=== PATIENT | female | born 1970 | race Two or more races ===

== ENCOUNTER 2021-05-14 11:11 | Outpatient (REF) | payer OTHER, SELFPAY ==
--- NOTE | ~2021-05-14 | XR_ITS ---
EXAMINATION: CERVICAL AND LUMBAR SPINE. CLINICAL INFORMATION: Low back pain. COMPARISON: None TECHNIQUE: 3 views lumbar spine and 3 views cervical spine. FINDINGS: LUMBAR SPINE: There is normal lumbar lordosis. The vertebral heights, alignment and disc heights are normal. There is no visible acute fracture, dislocation or lytic process seen. The paravertebral soft tissues are normal. CERVICAL SPINE: There is maintained cervical lordosis. The vertebral heights, alignment and disc heights are normal. No visible acute fracture, dislocation or lytic process seen. The prevertebral soft tissues are normal. XR/XR cervical spine 3V IMPRESSION: Unremarkable lumbar spine exam. Unremarkable cervical spine exam.
--- NOTE | ~2021-05-14 | XR_ITS ---
EXAMINATION: CERVICAL AND LUMBAR SPINE. CLINICAL INFORMATION: Low back pain. COMPARISON: None TECHNIQUE: 3 views lumbar spine and 3 views cervical spine. FINDINGS: LUMBAR SPINE: There is normal lumbar lordosis. The vertebral heights, alignment and disc heights are normal. There is no visible acute fracture, dislocation or lytic process seen. The paravertebral soft tissues are normal. CERVICAL SPINE: There is maintained cervical lordosis. The vertebral heights, alignment and disc heights are normal. No visible acute fracture, dislocation or lytic process seen. The prevertebral soft tissues are normal. XR/XR lumbar spine 2-3V IMPRESSION: Unremarkable lumbar spine exam. Unremarkable cervical spine exam.
== END 2021-05-14 11:12 | disposition home or self-care (01) ==
LOC: HO.XRAY 11:11
PROVIDERS: PCP Internal Medicine; Visit Provider Psychiatry & Neurology Neurology
DX: M47.812 Spondylosis without myelopathy or radiculopathy, cervical region (principal); M54.5 Low back pain
CPT/HCPCS: 72040; 72100

== ENCOUNTER 2021-07-01 09:48 | Outpatient (REF) | payer OTHER, SELFPAY ==
[2021-07-01 10:06] LABS: MANUAL DIFF FLAG NO
[2021-07-01 10:44] LABS: Basophils Percent Auto 0.4 % (0-2); Eosinophils Absolute Auto 0.1 X10*3/uL (0.0-0.4); Hematocrit 38.3 % (37-47); Hemoglobin 13.1 g/dl (12.0-16.0); Imm Gran Abs Auto 0.01 X10*3/uL (0.00-0.03); Imm Gran Pct Auto 0.2 % (0.0-0.4); Lymphocytes Absolute Auto 1.7 X10*3/uL (1.2-4.9); Lymphocytes Percent Auto 31.7 % (20-40); Mean Corpuscular HGB Conc 34.2 g/dl (31.0-35.0); Mean Corpuscular Hemoglobin 29.3 pg (27.0-33.0); Mean Corpuscular Volume 85.7 fL (80-98); Mean Platelet Volume 9.6 fL (9.4-12.3); Monocytes Absolute Auto 0.4 X10*3/uL (0.1-1.2); Monocytes Percent Auto 7.2 % (2-11); Neutrophils Absolute Auto 3.2 X10*3/uL (2.0-8.3); Neutrophils Percent Auto 58.5 % (45-73); Platelet Count 305 X10*3/uL (160-400); Red Blood Count 4.47 X10*6/uL (4.20-5.50); Red Cell Distribution Width 12.7 % (11.0-16.0); White Blood Count 5.4 X10*3/uL (4.8-10.8)
[2021-07-01 11:27] LABS: Thyroid Stimulating Hormone 1.02 uIU/mL (0.32-4.0)
[2021-07-01 11:58] LABS: Erythrocyte Sedimentation Rate 26 MM/HR (0-20)
[2021-07-02 09:11] LABS: Lyme Abs Screen <0.90 index
[2021-07-02 14:26] LABS: Anti Nuclear Antibody Screen NEGATIVE (NEGATIVE)
== END 2021-07-01 09:49 | disposition home or self-care (01) ==
LOC: HO.LAB 09:48
PROVIDERS: PCP Internal Medicine; Visit Provider Psychiatry & Neurology Neurology
DX: M25.50 Pain in unspecified joint (principal)
CPT/HCPCS: 36415; 84443; 85025; 85652; 86038; 86039; 86617; 86618

== ENCOUNTER 2022-04-28 10:30 | Outpatient (REF) | payer OTHER, SELFPAY ==
--- NOTE | ~2022-04-28 | MR_ITS ---
EXAMINATION: MR BRAIN WITHOUT AND WITH CONTRAST CLINICAL INFORMATION: Multiple sclerosis. COMPARISON: There are no prior studies available for comparison at time of dictation. TECHNIQUE: Multiplanar, multisequence MRI of the brain was obtained before and after the intravenous administration of 7.5 mL Gadavist. FINDINGS: No diffusion abnormalities are identified to suggest an acute or subacute infarct. No mass effect or midline shift is seen. The ventricles and sulci are normal in size. There are a few scattered foci of hyperintense T2 and FLAIR signal in the periventricular and subcortical white matter which are in a nonspecific distribution. A small focus of increased signal is seen in the mid left cerebellar hemisphere. The visualized upper cervical spinal cord has normal signal. No extra-axial fluid collections are seen. The brainstem appears normal. On postcontrast imaging, there is no abnormal parenchymal or leptomeningeal enhancement. No pathologic magnetic susceptibility artifact is identified on the gradient refocused acquisition. The cerebellar tonsils have normal contour and position, and the craniocervical junction appears normal. Marrow signal and midline structures are normal. The major intracranial flow-voids at the level of the [place] of [place] are preserved. The dural venous sinus flow-voids are maintained. The mastoid air cells are well-aerated. There is mild mucoperiosteal thickening of the bilateral maxillary and ethmoid sinuses. MR/MR head/brain wo/w con IMPRESSION: 1. There are no acute bleeds or infarcts. There are no masses or areas of abnormal enhancement. There are a few scattered nonspecific foci of hyperintense T2 and FLAIR signal. If prior studies become available, interval changes can be assessed.
== END 2022-04-28 10:31 | disposition home or self-care (01) ==
LOC: HO.MRI 10:30
PROVIDERS: Visit Provider Psychiatry & Neurology Neurology
DX: G35 Multiple sclerosis (principal)
CPT/HCPCS: 70553; A9585